=== PATIENT | male | born 1960 | race Native Hawaiian/Other Pacific Islander ===

== ENCOUNTER 2016-05-31 07:28 | Outpatient (CLI) | payer OTHER ==
[~2016-05-31] VITALS: Ht 172.7 cm; Wt 88.5 kg
== END 2016-05-31 08:28 | disposition home or self-care (01) ==
LOC: NM 07:28
DX: I10 Essential (primary) hypertension (principal)
CPT/HCPCS: A9500; J2785

== ENCOUNTER 2016-11-20 15:12 | Day surgery (SDC) | payer OTHER ==
[2016-07-02 10:04] LABS: PLATELET COUNT 258 K/uL (142-355)
[2016-07-02 10:15] LABS: POTASSIUM 4.6 mmol/L (3.6-5.2); SODIUM 138 mmol/L (136-145)
[2016-07-02 10:17] LABS: PARTIAL THROMBOPLASTIN TIME 24.4 SECONDS (24.5-33.6)
[~2016-11-20] VITALS: Ht 30.5 cm; Wt 0.5 kg
[2016-11-20 15:48] LABS: PLATELET COUNT 257 K/uL (142-355)
[2016-11-20 15:54] LABS: POTASSIUM 3.8 mmol/L (3.6-5.2)
[2016-11-20 16:04] LABS: PARTIAL THROMBOPLASTIN TIME 25.2 SECONDS (24.5-33.6)
== END 2016-11-20 18:55 ==
LOC: OR 15:12
PROVIDERS: Student in an Organized Health Care Education/Training Program
PROC: 0WQF0ZZ Repair Abdominal Wall, Open Approach (ICD-10-PCS; principal; 2016-11-20)
DX: K43.6 Other and unspecified ventral hernia with obstruction, without gangrene (principal); R10.84 Generalized abdominal pain
CPT/HCPCS: 36415; 80053; 85027; 85610; 85730; 93005; J0132; J0690; J1100; J2001; J2250; J2704; J2765; J3010; J3490; J7060; J7120; S0028